=== PATIENT | female | born 1995 | race Caucasian/White ===

== ENCOUNTER 2024-05-03 12:34 | Outpatient (CLI) | payer OTHER ==
[~2024-05-03] VITALS: Ht 167.6 cm; Wt 150.8 kg
[2024-05-03] MEDS ORDERED: BENA25CA4 PO (14:53)
[2024-05-03] MEDS ORDERED: REGL10TA6 PO (14:53)
[2024-05-03] MEDS ORDERED: ACET500P3 PO (14:53)
[2024-05-03] MEDS ORDERED: HOME MED LIST COMPLETE! XX SCH ×2 (14:55→16:35)
[2024-05-03] MEDS ORDERED: LABE200T5 PO (16:33)
== END 2024-05-03 16:05 | disposition home or self-care (01) ==
LOC: M LDO 12:34
PROVIDERS: ATTEND Obstetrics & Gynecology
DX: O26.893 Other specified pregnancy related conditions, third trimester (principal); O40.3XX9 Polyhydramnios, third trimester, other fetus; O35.14 Maternal care for (suspected) chromosomal abnormality in fetus, Turner Syndrome; R10.2 Pelvic and perineal pain; O13.3 Gestational [pregnancy-induced] hypertension without significant proteinuria, third trimester; Z3A.31 31 weeks gestation of pregnancy
CPT/HCPCS: 59025; G0463